=== PATIENT | female | born 1960 | race African-American/Black ===

== ENCOUNTER 2021-06-18 05:54 | Emergency (ER) | payer OTHER ==
[2021-06-18 06:20] VITALS: TEMP 97.4; BMI 24.2
[2021-06-18] MEDS ORDERED: LACTATED RINGERS SOLUTION 1000 ML INFUS.BAG IV ONE (07:47)
[2021-06-18] MEDS ORDERED: MECLIZINE HCL 25 MG TABLET (FP) PO ONE (07:47)
[2021-06-18] MEDS ORDERED: MECLIZINE HCL 25 MG TABLET (FP) ONE (08:17)
[2021-06-18 08:43] LABS: BASO % 0.5 % (0-2.0); EOS % 0.2 % (0-4.5); HEMATOCRIT 39.9 % (32.4-45.2); HEMOGLOBIN 13.4 GM/dL (10.7-15.3); LYMPH % 14.3 % (8-40); MCH 31.1 pg (25.7-33.7); MCHC 33.7 g/dl (32.0-36.0); MEAN CELL VOLUME 92.5 fl (80-96); MEAN PLT VOLUME 7.8 fl (7.5-11.1); MONO % 4.9 % (3.8-10.2); NEUT % 80.1 % (42.8-82.8); PLATELET COUNT 216 10^3/uL (134-434); RBC 4.31 M/mm3 (3.60-5.2); RDW 13.3 % (11.6-15.6); WHITE BLOOD COUNT 5.4 K/mm3 (4.0-10.0)
[2021-06-18 09:31] LABS: CALCIUM 9.4 mg/dL (8.5-10.1)
[2021-06-18 09:32] LABS: ALBUMIN 3.9 g/dl (3.4-5.0); BLOOD UREA NITROGEN 19.6 mg/dL (7-18)
[2021-06-18 09:35] LABS: CREATININE 0.8 mg/dL (0.55-1.3)
[2021-06-18 09:37] LABS: BILIRUBIN,TOTAL 0.9 mg/dL (0.2-1); TOT PROT 7.5 g/dl (6.4-8.2)
[2021-06-18 11:41] VITALS: BP 130/77; PULSE 84
== END 2021-06-18 11:35 | disposition home or self-care (01) ==
LOC: JER 05:54
DX: R55 Syncope and collapse (principal)
CPT/HCPCS: 36415; 80053; 82962; 84484; 85025; 93005; 93010; 99284-25

== ENCOUNTER 2023-12-29 06:39 | Inpatient (IN) | payer OTHER ==
[2023-12-29] MEDS: SODIUM CHLORIDE 1,000 ML IV STA ×2 (09:04→09:34)
[2023-12-29 09:12] LABS: BASO % 1.1 % (0-2.0); HEMATOCRIT 44.4 % (32.4-45.2); HEMOGLOBIN 14.2 GM/dL (10.7-15.3); LYMPH % 11.9 % (8-40); MCH 30.8 pg (25.7-33.7); MEAN CELL VOLUME 96.3 fl (80-96); MEAN PLT VOLUME 8.5 fl (7.5-11.1); MONO % 6.5 % (3.8-10.2); NEUT % 80.5 % (42.8-82.8); PLATELET COUNT 301 10^3/uL (134-434); RBC 4.61 M/mm3 (3.60-5.2); RDW 13.9 % (11.6-15.6); WHITE BLOOD COUNT 9.4 K/mm3 (4.0-10.0)
[2023-12-29 09:12] LABS: VENOUS BASE EXCESS -18.4 mmol/L (-2-2); VENOUS O2 SATURATION 44.7 % (70-80); VENOUS PCO2 25.6 mmHg (38-52)
[2023-12-29 09:14] LABS: VENOUS PH 7.15 (7.310-7.410)
[2023-12-29 09:33] LABS: POTASSIUM 4.9 mmol/L (3.5-5.1)
[2023-12-29 09:34] LABS: ALBUMIN 4.3 g/dl (3.4-5.0)
[2023-12-29 09:35] LABS: BLOOD UREA NITROGEN 18.4 mg/dL (7-18); CALCIUM 9.5 mg/dL (8.5-10.1); MAGNESIUM 2.5 mg/dL (1.8-2.4)
[2023-12-29 09:38] LABS: CREATININE 1.3 mg/dL (0.55-1.3)
[2023-12-29 09:40] LABS: TOT PROT 8.6 g/dl (6.4-8.2)
[2023-12-29 09:50] LABS: PH,URINE 5.5 (5.0-8.0); URINE APPEARANCE CLEAR; URINE BILIRUBIN NEGATIVE (NEGATIVE); URINE COLOR YELLOW; URINE GLUCOSE (UA) 3+ (NEGATIVE); URINE KETONE 4+ (NEGATIVE); URINE LEUK ESTERASE NEGATIVE (NEGATIVE); URINE NITRITE NEGATIVE (NEGATIVE); URINE PROTEIN TRACE (NEGATIVE); URINE UROBILINOGEN 0.2 mg/dL (0.2-1.0)
[2023-12-29] MEDS: INSULIN REGULAR 100 UNITS in SODIUM CHLORIDE 99 ML IVPB SCH ×3 (11:55→21:58)
[2023-12-29] MEDS ORDERED: KCL 10 MEQ IVPB 10 MEQ/100 ML INFUS.BAG IVPB ONE ×2 (12:03→14:54)
[2023-12-29] MEDS: DEXTROSE 5%-0.45% SALINE 1,000 ML IV SCH (12:23)
[2023-12-29] MEDS: KCL 10 MEQ IVPB 10 MEQ/100 ML INFUS.BAG IVPB SCH (12:23)
[2023-12-29 14:28] LABS: POTASSIUM 4.3 mmol/L (3.5-5.1)
[2023-12-29 14:29] LABS: CALCIUM 8.2 mg/dL (8.5-10.1)
[2023-12-29 14:30] LABS: BLOOD UREA NITROGEN 16.6 mg/dL (7-18); MAGNESIUM 2.2 mg/dL (1.8-2.4)
[2023-12-29 14:33] LABS: CREATININE 1.1 mg/dL (0.55-1.3)
[2023-12-29 14:49] LABS: PHOSPHOROUS 2.8 mg/dL (2.5-4.9)
[2023-12-29 15:45] VITALS: BMI 18.8
[2023-12-29] MEDS: D5-1/2NS+20 MEQ KCL - 20 MEQ/1,000 ML INFUS.BAG IV SCH ×2 (15:49→21:58)
[2023-12-29] MEDS ORDERED: INSULIN REGULAR 100 UNITS in SODIUM CHLORIDE 99 ML IVPB SCH (19:45)
[2023-12-29 21:36] LABS: CHLORIDE 111 mmol/L (98-107); POTASSIUM 3.7 mmol/L (3.5-5.1); SODIUM 136 mmol/L (136-145)
[2023-12-29 21:41] LABS: ANION GAP 8 mmol/L (4-13); CO2 16 mmol/L (21-32); MAGNESIUM 2.1 mg/dL (1.8-2.4)
[2023-12-29 21:42] LABS: GLUCOSE,RANDOM 182 mg/dL (74-106)
[2023-12-29] MEDS: CHLORHEXIDINE GLUCONATE 4% CLEANSER FOR DECOLONIZATION TP SCH (21:42)
[2023-12-29] MEDS: INSULIN (LEVEMIR) 100 UNITS/ML UNITS SQ SCH (22:00)
[2023-12-29] MEDS ORDERED: HEPARIN NA (PORCINE) 5,000 UNITS/ML 1ML VIAL SQ SCH (22:00)
[2023-12-29] MEDS: NAPH,MB-DB/K PH,MBDB POWDER PACKET PO ONE (22:33)
[2023-12-30] MEDS: D5-1/2NS+20 MEQ KCL - 20 MEQ/1,000 ML INFUS.BAG IV SCH ×2 (00:47→17:14)
[2023-12-30 07:19] LABS: BASO % 0.8 % (0-2.0); EOS % 0.6 % (0-4.5); HEMATOCRIT 37.4 % (32.4-45.2); HEMOGLOBIN 12.5 GM/dL (10.7-15.3); LYMPH % 20.1 % (8-40); MCH 31.2 pg (25.7-33.7); MCHC 33.4 g/dl (32.0-36.0); MEAN CELL VOLUME 93.2 fl (80-96); MEAN PLT VOLUME 8.8 fl (7.5-11.1); MONO % 13.8 % (3.8-10.2); NEUT % 64.7 % (42.8-82.8); PLATELET COUNT 205 10^3/uL (134-434); RBC 4.01 M/mm3 (3.60-5.2); RDW 14.2 % (11.6-15.6); WHITE BLOOD COUNT 5.5 K/mm3 (4.0-10.0)
[2023-12-30 07:32] LABS: POTASSIUM 3.9 mmol/L (3.5-5.1)
[2023-12-30 07:35] LABS: BLOOD UREA NITROGEN 8.3 mg/dL (7-18); CALCIUM 8.4 mg/dL (8.5-10.1); MAGNESIUM 2.1 mg/dL (1.8-2.4)
[2023-12-30 07:39] LABS: CREATININE 0.7 mg/dL (0.55-1.3); PHOSPHOROUS 1.8 mg/dL (2.5-4.9)
[2023-12-30] MEDS: MUPIROCIN 2% TOPICAL OINTMENT FOR DECOLONIZATION NS SCH (09:54)
[2023-12-30] MEDS: ENOXAPARIN NA (PORCINE) 40 MG/0.4 ML DISP.SYRIN SQ SCH (09:54)
[2023-12-30] MEDS ORDERED: INSULIN ASPART SLIDING SCALE (NOVOLOG) 1 VIAL SQ SCH (11:00)
[2023-12-30] MEDS: INSULIN ASPART SLIDING SCALE (NOVOLOG) 1 VIAL SQ SCH ×2 (11:22→16:55)
[2023-12-30] MEDS: NAPH,MB-DB/K PH,MBDB POWDER PACKET PO SCH ×2 (14:46→17:34)
[2023-12-30] MEDS ORDERED: MUPIROCIN 2% TOPICAL OINTMENT FOR DECOLONIZATION NS SCH (22:00)
[2023-12-30] MEDS ORDERED: CHLORHEXIDINE GLUCONATE 4% CLEANSER FOR DECOLONIZATION TP SCH (22:00)
[2023-12-30] MEDS: ATORVASTATIN CA 20 MG TABLET (FP) PO SCH (22:52)
[2023-12-31] MEDS: ENOXAPARIN NA (PORCINE) 40 MG/0.4 ML DISP.SYRIN SQ SCH (10:13)
[2023-12-31] MEDS: INSULIN (LEVEMIR) 100 UNITS/ML UNITS SQ SCH (21:31)
[2024-01-01] MEDS: INSULIN (LEVEMIR) 100 UNITS/ML UNITS SQ SCH (06:12)
[2024-01-01 07:51] LABS: BASO % 0.4 % (0-2.0); EOS % 0.5 % (0-4.5); HEMATOCRIT 34.9 % (32.4-45.2); HEMOGLOBIN 11.9 GM/dL (10.7-15.3); LYMPH % 30.7 % (8-40); MCH 31.6 pg (25.7-33.7); MCHC 34.2 g/dl (32.0-36.0); MEAN CELL VOLUME 92.4 fl (80-96); MEAN PLT VOLUME 7.7 fl (7.5-11.1); MONO % 15.7 % (3.8-10.2); NEUT % 52.7 % (42.8-82.8); PLATELET COUNT 193 10^3/uL (134-434); RBC 3.78 M/mm3 (3.60-5.2); RDW 14.1 % (11.6-15.6); WHITE BLOOD COUNT 3.4 K/mm3 (4.0-10.0)
[2024-01-01 15:29] VITALS: BP 124/73; PULSE 85; RESP 18; TEMP 98.1
== END 2024-01-01 16:46 | disposition home or self-care (01) | DRG 420 ==
LOC: JER 06:39 → JERBED 12:05 → JICU 15:08 → J8W 12-30 15:28
PROVIDERS: ADMIT Internal Medicine; ATTEND Internal Medicine
DX: E10.10 Type 1 diabetes mellitus with ketoacidosis without coma (principal); I10 Essential (primary) hypertension; E78.5 Hyperlipidemia, unspecified; E86.0 Dehydration; T38.3X5A Adverse effect of insulin and oral hypoglycemic [antidiabetic] drugs, initial encounter; Y92.89 Other specified places as the place of occurrence of the external cause
CPT/HCPCS: 0241U-QW; 36415; 71045-TC-FY; 80048; 80053; 81003; 82010; 82803; 82962; 83036; 83690; 83735; 84100; 84484; 85025; 87086; 87481; 93005; 93010; 93306-TC; 99291